=== PATIENT | male | born 1960 | race Caucasian/White ===

== ENCOUNTER → 2020-05-01 09:17 | Outpatient (CLI) | payer OTHER, SELFPAY ==
--- NOTE | ~2020-05-01 | MR_ITS ---
EXAMINATION: MR cervical spine wo con DATE: 05/01/2020 09:56 INDICATION: Cervical disc disorder with radiculopathy. TECHNIQUE: Magnetic resonance imaging (MRI) of the cervical spine was performed without intravenous c ontrast. Sequences included sagittal T2-weighted FSE, sagittal T2-weighted FS FSE, sagittal T1-weight ed FSE, axial MERGE and axial T2-weighted FSE. COMPARISON: 06/07/2015 FINDINGS: Mild levocurvature at the cervicothoracic junction. Sagittal alignment is normal. Cervical vertebral body heights are normal. Chronic T1 hyperintense hemangiomas at C6 and C7.. Mild disc height loss at C4-C5 and moderate disc height loss with fibrovascular degenerative endplate changes at C6-C7. Marro w signal is otherwise normal. Cord signal intensity is normal. Cervical soft tissues are unremarkable . The following disc levels are specifically discussed: C2-C3: The disc does not extend beyond the endplate margin. There is no uncovertebral joint osteoarth ritis. There is mild right and moderate left facet joint osteoarthritis. There is mild left neural fo raminal stenosis. There is no central canal stenosis. C3-C4: Unchanged small central disc extrusion. There is mild right and moderate left uncovertebral ole int osteoarthritis. There is mild right and severe left facet joint osteoarthritis. There is mild rig ht and moderate left neural foraminal stenosis. There is minimal central canal stenosis. C4-C5: Small central disc extrusion. There is moderate right and severe left uncovertebral joint oste oarthritis. There is mild bilateral facet joint osteoarthritis. There is mild right and moderate left neural foraminal stenosis. There is mild central canal stenosis. C5-C6: Disc is mildly bulging. There is moderate bilateral uncovertebral joint osteoarthritis. There is mild right and mild to moderate left facet joint osteoarthritis. There is mild bilateral neural fo raminal stenosis. There is minimal central canal stenosis. C6-C7: Eccentric to the left posterior disc osteophyte complex. There is mild right and severe left u ncovertebral joint osteoarthritis. There is mild right and moderate left facet joint osteoarthritis. There is mild right and moderate left neural foraminal stenosis. There is mild central canal stenosis with mild indentation of the left ventral surface of the cord. C7-T1: Small central disc extrusion. There is mild left and moderate right uncovertebral joint osteoa rthritis. There is mild bilateral facet joint osteoarthritis. There is no neural foraminal stenosis. There is no central canal stenosis. IMPRESSION: 1. Slight progression in moderate cervical spondylosis. Reviewed, dictated and finalized at location A.
== END ==
PROVIDERS: PCP Physician Assistant; Visit Provider Nurse Practitioner Adult Health
DX: M47.22 Other spondylosis with radiculopathy, cervical region (principal)
CPT/HCPCS: 72141

== ENCOUNTER → 2020-08-09 08:40 | Outpatient (CLI) | payer OTHER, SELFPAY ==
--- NOTE | ~2020-08-09 | XR_ITS ---
EXAMINATION: XR shoulder RT min 2V DATE: 08/09/2020 09:33 INDICATION: Right shoulder pain. TECHNIQUE: 4 views of right shoulder were obtained. COMPARISON: None. FINDINGS: Bone alignment is normal. No fracture. There is mild osteoarthritis of glenohumeral joint. The acromioclavicular joint is normal. IMPRESSION: 1. Mild glenohumeral joint osteoarthritis. Reviewed, dictated and finalized at location A.
== END ==
PROVIDERS: PCP Physician Assistant; Visit Provider Nurse Practitioner Adult Health
DX: M25.511 Pain in right shoulder (principal); M19.011 Primary osteoarthritis, right shoulder
CPT/HCPCS: 73030

== ENCOUNTER → 2020-09-07 08:50 | Outpatient (CLI) | payer OTHER, SELFPAY ==
--- NOTE | ~2020-09-07 | XR_ITS ---
XR scapula RT DATE: 09/07/2020 09:17 INDICATION: Right shoulder pain TECHNIQUE: 2 views COMPARISON: None FINDINGS: No fracture or dislocation, periosteal reaction or bone destruction or abnormal soft tissue calcification is noted at the right shoulder. Right scapula appears intact. Normal alignment at the acromioclavicular and glenohumeral joints. IMPRESSION: Negative Reviewed, dictated and finalized at location A. IMPRESSION: Negative
--- NOTE | ~2020-09-07 | XR_ITS ---
XR thoracic spine 2V DATE: 09/07/2020 09:17 INDICATION: Thoracic spine pain TECHNIQUE: AP, lateral, swimmer COMPARISON: None FINDINGS: There is moderate anterior wedge compression fracture deformity of T3. There is mild to moderate anterior wedging and loss of height of T5. Diffuse osteopenia. No other fracture or dislocation is evident. The thoracic pedicles are intact. No paraspinal soft tis rakel thickening. Mild degenerative spurring of the thoracic spine. IMPRESSION: Diffuse osteopenia Compression fracture deformities of T3 and T5 Mild scoliosis and mild degenerative change Reviewed, dictated and finalized at location A.
== END ==
PROVIDERS: PCP Physician Assistant; Visit Provider Nurse Practitioner Adult Health
DX: M54.6 Pain in thoracic spine (principal); M25.511 Pain in right shoulder; M85.88 Other specified disorders of bone density and structure, other site; M41.9 Scoliosis, unspecified
CPT/HCPCS: 72070; 73010

== ENCOUNTER → 2020-09-16 11:15 | Outpatient (CLI) | payer OTHER, SELFPAY ==
--- NOTE | ~2020-09-16 | MR_ITS ---
EXAMINATION: MR thoracic spine wo con DATE: 09/16/2020 12:12 INDICATION: Thoracic spine pain. TECHNIQUE: Magnetic resonance imaging (MRI) of the thoracic spine was performed without intravenous c ontrast. Sagittal localizer T1-weighted FSE of the cervical spine was obtained. Thoracic spine sequen ivory included sagittal T2-weighted FSE, sagittal T1-weighted FSE, sagittal T2-weighted FS FSE, and axi al T2-weighted FSE. COMPARISON: Thoracic spine radiographs 09/07/2020 FINDINGS: There is 13 degrees dextroscoliosis of thoracic spine. There are chronic compression fractu res of T3 and T5 with 1/5 loss of height. There is mild chronic anterior wedging of T9-L1 vertebral b odies associated with Schmorl's nodes. There is a hemangioma in T6. There is moderately decreased dis c height at T3-T4, mildly decreased disc height from T4-T5 through T9-T10, and moderately decreased d isc height at T10-T11. There is multilevel facet joint osteoarthritis, severe on the right at T5-T6. On the right, there is mild neural foraminal stenosis at T4-T5 and T5-T6. On the left, there is mild neural foraminal stenosis at T10-T11. At T3-T4, there is a right central protrusion with mild central canal stenosis and ventral indentation of the spinal cord. At T8-T9, the disc is mildly bulging with mild central canal stenosis. At T9-T10 and T10-T11, the discs are mildly bulging with mild central c anal stenosis. The spinal cord signal intensity is normal. IMPRESSION: 1. Moderate thoracic spondylosis. 2. Thoracic dextroscoliosis. Reviewed, dictated and finalized at location A. RAL ENGINEERING TEACHER
== END ==
PROVIDERS: PCP Physician Assistant; Visit Provider Nurse Practitioner Adult Health
DX: M47.894 Other spondylosis, thoracic region (principal)
CPT/HCPCS: 72146

== ENCOUNTER 2020-10-13 08:40 | Outpatient (CLI) | payer OTHER, SELFPAY ==
--- NOTE | ~2020-10-13 | NM_ITS ---
EXAMINATION: NM bone scan whole body DATE: 10/13/2020 12:07 INDICATION: Back pain. Osteoporosis. TECHNIQUE: 25 mCi Tc-99m HDP was administered intravenously. Delayed whole-body scintigrams were obt ained. COMPARISON: Thoracic spine MRI 09/16/2020, lumbar spine MRI 06/27/2015 FINDINGS: There is increased activity at the first carpometacarpal joints, sternoclavicular joints, a nd sternoclavicular joints, likely osteoarthritis. There is increased activity in lower lumbar spine correlating with spondylosis by MRI. IMPRESSION: 1. Normal thoracic spine. Increased activity in lower lumbar spine correlating with spondylosis by MR I. Reviewed, dictated and finalized at location A. S PRODUCTION MACHINE OPERATOR IMPRESSION: 1. Normal thoracic spine. Increased activity in lower lumbar spine correlating with spondylosis by MRI.
== END 2020-10-13 08:41 | disposition home or self-care (01) ==
LOC: ANHIMG 08:45
PROVIDERS: PCP Physician Assistant; Visit Provider Nurse Practitioner Adult Health
DX: M81.0 Age-related osteoporosis without current pathological fracture (principal)
CPT/HCPCS: 78306; A9561

== ENCOUNTER 2021-06-02 17:27 | Emergency (ER) | payer OTHER, SELFPAY ==
--- NOTE | ~2021-06-02 | CT_ITS ---
EXAMINATION: CT lumbar spine wo [facility] EXAM DATE: 06/02/2021 19:11 INDICATION: Fall, low back pain. Initial encounter. TECHNIQUE: Spiral CT lumbar spine was performed without contrast. Axial, coronal and sagittal images of the lumbar spine were reviewed. The dose-length product (DLP) for this examination was 322.59 mGy- cm. The exposure was tailored according to patient size (auto mA exposure control), and iterative re construction (ASIR) was used as additional dose reduction technique. Correlation is made to lumbar MR examination 06/27/2015. FINDINGS: There is no evidence of acute lumbar fracture. There is no disc space widening or traumatic vertebra l body subluxation suspected. Paraspinal soft tissue is unremarkable. Mild to moderate lumbar spond ylosis. Vertebral body heights are maintained. A detailed level by level evaluation of spondylosis ca n be added as addendum if requested. IMPRESSION: Mild to moderate lumbar spondylosis. No acute findings. Reviewed, dictated and finalized at location A.
--- NOTE | ~2021-06-02 | XR_ITS ---
EXAMINATION: XR hip LT 2V w AP pelvis EXAM DATE: 06/02/2021 19:36 INDICATION: Fall, left hip and low back pain. Initial encounter. TECHNIQUE: Left hip frontal, crosstable lateral projections for interpretation. Frontal projection pe lvis. There is no prior study for comparison. FINDINGS: Smooth left hip femoral head contour, no radiographic evidence of avascular necrosis. Ther e are no acute fractures or dislocations identified. There is no subcutaneous gas. The soft tissue is unremarkable. There are no radiopaque foreign bodies. There is mild symmetric bilateral hip allison apolinar osteoarthritis. IMPRESSION: No acute osseous findings. Reviewed, dictated and finalized at location A. IMPRESSION: No acute osseous findings.
--- NOTE | ~2021-06-02 | XR_ITS ---
EXAMINATION: XR thoracic spine 3V EXAM DATE: 06/02/2021 19:36 INDICATION: FALL lower back pain into left leg . TECHNIQUE: Frontal and lateral projections of the thoracic spine as well as lateral swimmers projecti on of the upper thoracic spine for interpretation. Comparison is made to prior examination from 09/07 FINDINGS: There is mild compression fracture of 2 mid thoracic vertebral body levels, probably T3 and T5, both appear unchanged compared to prior examination. The vertebral body and disc heights are oth erwise well maintained. There are no acute fractures identified. The vertebral bodies are aligned i n the AP dimension. Paraspinal soft tissue is unremarkable. Mild thoracic spondylosis and dextroscoli osis. There is aortic arteriosclerosis. IMPRESSION: 1. Mild chronic compression fractures T3 and T5. 2. No acute findings. Reviewed, dictated and finalized at location A.
[2021-06-02 17:44] VITALS: BP 176/67; PULSE 70; RESP 16; TEMP 36.6; O2SAT 100
[2021-06-02 19:11] LABS: Add Urine Microscopic? NO; Appearance Urine Clear (Clear); Bilirubin Urine Negative (Negative); Blood Urine Negative (Negative); Color Urine Colorless (Yellow); Glucose Urine UA Negative (Negative); Ketones Urine Negative (Negative); Leukocyte Esterase Ur Negative LEU/UL (Negative); Nitrate Urine Negative (Negative); Protein Urine Negative (Negative); Urobilinogen Urine Negative mg/dL (<2.0)
[2021-06-02 19:12] LABS: Specific Grav Ur 1.003 (1.001-1.035)
[2021-06-02 19:34] LABS: Amphetamine Screen Urine Negative (Negative); Barbiturate Screen Urine Negative (Negative); Benzodiazepines Screen Urine Positive (Negative); Cannabinoid Screen Urine Positive (Negative); Cocaine Screen Urine Negative (Negative); Methadone Screen Urine Negative (Negative); Opiate Screen Urine Negative (Negative); Phencyclidine Screen Urine Negative (Negative)
[2021-06-02 20:01] VITALS: PULSE 78; RESP 19; O2SAT 98
[2021-06-02 20:02] VITALS: BP 147/86; PULSE 81; RESP 19; O2SAT 98
[2021-06-02 20:13] LABS: Basophils Absolute Auto 0.1 K/mm3 (0.0-0.1); Basophils Percent Auto 0.5 % (0.2-1.2); Eosinophils Absolute Auto 0.1 K/mm3 (0-0.3); Eosinophils Percent Auto 0.6 % (0-4.4); Hematocrit 41.7 % (42.0-52.0); Hemoglobin 14.5 g/dL (14.0-18.0); Immature Granulocyte Absolute 0.05 K/mm3 (0.00-0.031); Immature Granulocyte Percent A 0.5 % (0-0.5); Lymphocytes Absolute Auto 1.42 K/mm3 (0.9-3.2); Mean Corpuscular HGB Conc 34.8 g/dl (32-36); Mean Corpuscular Hemoglobin 32.8 pg (26-34); Mean Corpuscular Volume 94.3 fl (80-100); Mean Platelet Volume 8.4 fl (7.4-10.4); Monocytes Absolute Auto 1.1 K/mm3 (0.1-0.6); Monocytes Percent Auto 11.2 % (2.6-8.5); Neutrophils Absolute Auto 6.8 K/mm3 (1.3-6.7); Neutrophils Percent Auto 72.2 % (45.5-73.1); Platelet Count Result 322 k/mm3 (150-375); Red Blood Count 4.42 M/mm3 (4.6-6.20); White Blood Count 9.5 K/mm3 (4.5-10.0)
--- NOTE | 2021-06-02 20:13 | ED.BACK ---
HPI - Back Pain/Injury General Chief Complaint: Back Pain/Injury Stated Complaint: low back pain chronic Time Seen by Provider: 06/02/21 17:45 Source: patient, EMS and RN notes reviewed Mode of arrival: EMS Limitations: no limitations History of Present Illness HPI Narrative: Patient is 60 years old white male presented to the ED by ambulance from home complaining of lower back pain and multiple falls. Patient is telling me the pain started immediately after trying to pickle pumper an ice cube of the floor. Patient denies bowel dysfunction, bladder dysfunction, altered sensation, focal weakness, or saddle numbness,. Patient also denies any fever, chills, nausea, vomiting, abdominal pain, chest pain, shortness of breath, headache. Patient lives alone, drinks alcohol daily, uses a cane at home, patient fell twice over the last 2 days, denying any specific injury. History of chronic pain in the neck, mid back and lower back. Patient had numerous cortisone injection in the neck and mid back. Last 1 was April 24, 2021. Patient also been managed by pain management physician and back ,. Patient is telling me that he been urinating in a bucket over the last 4 days because inability to get up. Patient does not take any pain medicine at this time. Patient requesting a pain shot and muscle relaxant so he can manage to take care of himself. Related Data Home Medications Medication Instructions Recorded Confirmed ketotifen fumarate 0.025 % (0.035 1 drop EACH EYE BID 10/13/19 05/26/21 %) eye drops mecobalamin (vitamin B12) 1,000 1,000 mcg SUBLINGUAL DAILY 10/13/19 05/26/21 mcg disintegrating tablet,sublingual magnesium oxide 400 mg (241.3 mg 800 mg PO .in pm tablet 10/14/19 05/26/21 magnesium) tablet Allergies Allergy/AdvReac Type Severity Reaction Status Date / Time amoxicillin Allergy Mild Hives Verified 05/25/21 08:38 Review of Systems Review of Systems: Narrative: CONSTITUTIONAL: Denies fever, chills, or sweats. EYES: Denies visual changes, redness, or discharge. ENT: Denies rhinorrhea, congestion, sore throat, or otalgia. CARDIOVASCULAR: Denies chest pain, palpitations, or edema. RESPIRATORY: Denies cough or dyspnea. GASTROINTESTINAL: Denies abdominal pain, nausea, vomiting, or diarrhea. GENITOURINARY: Denies dysuria or hematuria. SKIN: Denies rash or itching. MUSCULOSKELETAL: Denies back pain, joint pain, or myalgia. NEUROLOGIC: Denies headache, numbness, or weakness. PSYCHIATRIC: Denies anxiety or depression. [facility] Past Medical History Medical History (Updated 06/02/21 @ 21:21 by Calista Robles MD) B12 deficiency Surgical History Surgical History No significant past surgical history Family History Family History Mother Family history of rheumatoid arthritis Father Patient's father is Acute myocardial infarction Social History Social History Smoking status: Current every day smoker (vaping) Tobacco type: e-cigarettes/vaping Second hand tobacco smoke exposure: No Alcohol intake: current Substance use: never Gender identity (if verbalized by the patient): Male Exam Narrative: Exam Narrative: General appearance: Well-developed, well-nourished, does not look in pain Skin: Normal color Head: Normocephalic, nontraumatic Eyes: Clear conjunctiva ENT: Oropharynx normal, ears normal, nose normal Neck: Supple, nontender Chest and respiratory: Airway patent, no respiratory distress, no accessory muscle use Heart: Regular rate/rhythm Abdomen: Soft, nontender, no organomegaly, quiet bowel sounds Vascular: Normal peripheral pulses, normal capillary refill. Musculoskeletal: Slight limited range of motion on the left hip because of pain. No localized tenderness on back exam, patient was screaming from pain when he tried
[2021-06-02 20:23] LABS: Ethanol < 10 mg/dL (<10)
[2021-06-02 20:38] LABS: Alanine Aminotransferase 34 U/L (4-50); Albumin Level 4.6 g/dL (3.5-5.1); Alkaline Phosphatase 60 U/L (38-126); Anion Gap 12 mmol/L (8-16); Aspartate Amino Transferase 48 U/L (17-59); Bilirubin,Total 0.8 mg/dL (0.2-1.3); Blood Urea Nitrogen 10 mg/dL (9-20); Calcium 9.6 mg/dL (8.4-10.2); Carbon Dioxide 22 mmol/L (22-30); Chloride 94 mmol/L (98-107); Estimated CRCL calculation 94 ml/min; Estimated Glomerular Filt Rate > 60; Glucose 75 mg/dL (65-110); Potassium 4.3 mmol/L (3.4-5.0); Sodium 128 mmol/L (137-145)
[2021-06-02] MEDS: ONDANSETRON INJ 4 MG/2 ML VIAL IV PUSH (20:47)
[2021-06-02] MEDS: HYDROmorphone HCL INJ (*CRX) 1 MG/ML SYR 0.5 MG IV PUSH (20:47)
--- NOTE | 2021-06-02 21:10 | PC.NURSE ---
Patient ambulated in room with his cane with a steady gait and stated he feels comfortable going home. ERP notified.
[2021-06-02 21:36] VITALS: BP 115/48; PULSE 75; RESP 17; O2SAT 97
== END 2021-06-02 21:36 | disposition home or self-care (01) ==
PROVIDERS: Emergency Provider Emergency Medicine; PCP Physician Assistant
DX: M54.5 Low back pain (principal); M54.6 Pain in thoracic spine; R29.6 Repeated falls; G89.29 Other chronic pain; E53.8 Deficiency of other specified B group vitamins; F17.290 Nicotine dependence, other tobacco product, uncomplicated; M47.816 Spondylosis without myelopathy or radiculopathy, lumbar region; M48.54XA Collapsed vertebra, not elsewhere classified, thoracic region, initial encounter for fracture
CPT/HCPCS: 36415; 72072; 72131; 73502; 80053; 80307; 81003; 85025; 96374; 96375; 99284; J1170; J2405

== ENCOUNTER 2021-07-06 07:46 | Outpatient (CLI) | payer OTHER, SELFPAY ==
--- NOTE | ~2021-07-06 | MR_ITS ---
EXAMINATION: MR lumbar spine wo con DATE: 07/06/2021 08:36 INDICATION: Low back pain. TECHNIQUE: Magnetic resonance imaging (MRI) of the lumbar spine was performed without intravenous con trast. Sequences included sagittal T2-weighted FSE, sagittal T2-weighted FS FSE, sagittal T1-weighted FSE, and axial T2-weighted FSE. COMPARISON: Lumbar spine MRI 06/27/2015 FINDINGS: There is 3 degrees levocurvature of lumbar spine. Vertebral body heights are normal. There is mildly decreased disc height at L3-L4 and moderately decreased disc height at L5-S1. The distal sp inal cord signal intensity is normal. The conus medullaris is at L1. The following disc levels are sp ecifically discussed: L1-L2: The disc does not extend beyond the endplate margin. There is mild bilateral facet joint osteo arthritis. There is no neural foraminal stenosis. There is no central canal stenosis. L2-L3: The disc is bulging. There is moderate right and mild left facet joint osteoarthritis. There i s mild bilateral neural foraminal stenosis. There is mild central canal stenosis. L3-L4: The disc is bulging with superimposed right central extrusion. There is severe right and mild left facet joint osteoarthritis. There is mild bilateral neural foraminal stenosis. There is mild halima tral canal stenosis. L4-L5: The disc is bulging and has an annular fissure. There is severe right and mild left facet join t osteoarthritis. There is moderate right and mild left neural foraminal stenosis. There is mild cent ral canal stenosis. L5-S1: The disc is bulging with superimposed left subarticular zone extrusion with mass effect on lef t S1 nerve root in left lateral recess. There is severe bilateral facet joint osteoarthritis. There i s mild right and moderate left neural foraminal stenosis. There is mild central canal stenosis. IMPRESSION: 1. Moderate lumbar spondylosis with mild worsening from 06/27/2015. Reviewed, dictated and finalized at location A.
== END 2021-07-06 07:47 | disposition home or self-care (01) ==
PROVIDERS: PCP Physician Assistant; Visit Provider Physician Assistant
DX: M47.896 Other spondylosis, lumbar region (principal)
CPT/HCPCS: 72148

== ENCOUNTER 2022-06-07 09:09 | Outpatient (CLI) | payer OTHER, SELFPAY ==
--- NOTE | ~2022-06-07 | US_ITS ---
US art doppler w press LE BI INDICATION: Referral vascular disease. TECHNIQUE: Segmental pressures and plethysmographic and Doppler waveforms of the brachial and lower e xtremity arteries were obtained. COMPARISON: 11/05/2019. FINDINGS: Right and left brachial artery pressures of 140 mm Hg and 136 mm Hg, respectively, are concordant (no rmal difference <= 30 mmHg). There are biphasic waves. The right ankle-brachial index (SIRIA) is 1.14 (normal >= 0.9-1.0). The right great toe-brachial index (TBI) is 0.49 (normal >= 0.60). There are biphasic waves. The left SIRIA is 0.96. The left TBI is 0.79. IMPRESSION: 1. Normal bilateral ankle-brachial indices. 2: Mildly decreased right toe brachial index, consistent with peripheral arterial disease. Reviewed, dictated and finalized at location A. IMPRESSION: 1. Normal bilateral ankle-brachial indices. 2: Mildly decreased right toe brachial index, consistent with peripheral arteri al disease.
== END 2022-06-07 09:10 | disposition home or self-care (01) ==
PROVIDERS: PCP Physician Assistant; Visit Provider Physician Assistant
DX: I73.9 Peripheral vascular disease, unspecified (principal)
CPT/HCPCS: 93923

== ENCOUNTER 2024-09-01 14:46 | Outpatient (CLI) | payer OTHER, SELFPAY ==
--- NOTE | ~2024-09-01 | XR_ITS ---
EXAMINATION: XR hand RT min 3V DATE: 09/01/2024 15:05 INDICATION: Pain in right fingers and base of thumb. TECHNIQUE: 3 views of right hand were obtained. COMPARISON: None. FINDINGS: Alignment is normal. No fracture. There is severe osteoarthritis of first carpometacarpal j oint and mild osteoarthritis of second, third, and fifth distal interphalangeal joints. IMPRESSION: 1. Polyarticular osteoarthritis. Reviewed, dictated and finalized at location A.
== END 2024-09-01 14:47 | disposition home or self-care (01) ==
PROVIDERS: PCP Internal Medicine; Visit Provider Internal Medicine
DX: M19.041 Primary osteoarthritis, right hand (principal)
CPT/HCPCS: 73130

== ENCOUNTER 2025-04-13 15:09 | Outpatient (CLI) | payer OTHER, SELFPAY ==
--- NOTE | ~2025-04-13 | CT_ITS ---
CT Scan of the Chest without Contrast: Clinical Indication: Lung cancer screening, nicotine dependence Technique: Contiguous sections were acquired throughout the chest without intravenous contrast. Dose reduction technique was used on this scan by utilizing automated exposure control and iterative recon struction technique. The dose-length product (DLP) was 82.47 mGy-cm. Findings: There is no evidence of any significant mediastinal, hilar or axillary lymphadenopathy. There are ath erosclerotic calcifications of the aorta and coronary arteries. There is no evidence of pleural or pericardial effusion. The lungs are clear. No pulmonary nodules or infiltrates are noted. Mild emphysema. Images through the upper abdomen reveal no abnormalities. Impression: Lung RADS 1: Negative. 12 month follow-up screening CT advised. Reviewed, dictated and finalized at location . Impression: Lung RADS 1: Negative. 12 month follow-up screening CT advised.
--- OUTSIDE RECORDS SUMMARY | 2025-04-13 15:15 | XMS_ITS | Clinical Summary ---
Author Organization [facility] [employer] Address [address] [place] [address] Care Team Providers Care Heading Matcher And Assembler Name Role Phone Mary Kenney MD Primary Care Provider [phone] Source Comments [facility] [employer],non-owned Affiliates and Associated Physician Practices is amultiple site organization consisting of ambulatory clinics and hospital sitesin [place], [place], [place] and [place]. This disclosure is being madepursuant to the Care Everywhere program and may not contain all information available regarding this patient. Last updated 18.[facility] [employer] Allergies Active Allergy Reactions Criticality Noted Date Comments Amoxicillin Rash Low 11/26/2013 Medications * Be aware that medications may not be up to date on this document. Alwaysverify current medications with the patient. ketotifen (ALAWAY) 0.025 % ophthalmic solution Instill 1 Drop into both eyes once daily. Active cyclobenzaprine (FLEXERIL) 10 MG tablet Take 1 Tab by mouth 3 times daily as needed for Muscle Spasms. 30 Tab 0 03/09/2015 Active naproxen (NAPROSYN) 500 MG tablet Take 1 Tab by mouth 2 times daily. 60 Tab 5 03/09/2015 Active valACYclovir (VALTREX) 500 MG tablet Take 1 Tab by mouth once daily. 30 Tab 5 03/09/2015 Active mometasone (NASONEX) 50 MCG/ACT nasal spray [place] 2 Sprays into each nostril once daily. 3 Inhaler 3 03/09/2015 Active fexofenadine-ps eudoephedrine ER 12hr (NAHOMY-D ALLERGY & CONGESTION) 60-120 MG tablet 1 Tab 2 times daily 60 Tab 1 04/25/2015 Active Active Problems Problem Noted Date Diagnosed Date Allergic rhinitis 11/29/2014 Prehypertension 11/29/2014 Recurrent HSV (herpes simplex virus) 11/26/2013 Overview (11/26/2013): Takes 500 mg daily as a suppression dose (please write for BID for ease) Hyperlipidemia 11/15/2013 Overview (11/15/2013): 10y ASCVD risk 4.8% 11/2013 no indication for statin Anxiety 08/04/2013 Erectile dysfunction 01/28/2013 Tobacco abuse 10/28/2012 Hearing loss, left 10/28/2012 Immunizations Immunization Administration Dates Next Due INFLUENZA VACCINE, TRIV. (AF LURIA, FLUZONE TRIVALENT; 6MO+) (IIV3) 08/04/2013,10/15/2012 PNEUMOCOCCAL PPSV23 10/28/2012 TETANUS 10/31/2005 Family History Medical History Relation Name Comments CAD (Coronary Artery Disease) Father Arthritis - Osteo Mother Arthritis - Rheumatoid Mother CAD (Coronary Artery Disease) Mother Diabetes Mother Relation Name Status Comments Father Mother Social History Tobacco Use Types Packs/Day Years Used Date Smoking Tobacco: Every Day Cigarettes 1.5 35 Tobacco Cessation:Ready to Q uit: Yes; Counseling Given: Yes Comments:ready to try Alcohol Use Standard Drinks/Week Comments Yes 0 (1 standard drink = 0.6 oz pure alcohol) every day, about 4-5 drinks a day. no hx of DTs. Sex and Gender Information Value Date Recorded Sex Assigned at Not on file Legal Sex Male 3:59 PM TELEMARKETING AGENT Gender Identity Not on file Sexual Orientation Not on file Last Filed Vital Signs Vital Sign Reading Time Taken Comments Blood Pressure 134/74 03/09/2015 3:08 PM CDT Pulse 78 03/09/2015 3:08 PM CDT Temperature 36.2 C (97.1 F) 08/04/2013 1:40 PM CDT Respiratory Rate - - Oxygen Saturation 100% 03/09/2015 3:08 PM CDT Inhaled Oxygen Concentration - - Weight 66.2 kg (146 lb) 03/09/2015 3:08 PM CDT Height 177.8 cm (5' 10) 03/09/2015 3:08 PM CDT Body Mass Index 20.95 03/09/2015 3:08 PM CDT Plan of Treatment Health Maintenance Due Date Last Done Comments COLOGUARD (AGES 45-75) - COL ON CA SCREENING 1961 COLONOSCOPY - COLON CA SCREENING 1961 CT COLONOGRAPHY - COLON CA SCREENING 1961 FLEX SIG - COLON CA SCREENING 1961 HIV SCREENING 1976 ZOSTER VACCINE (1 of 2) 2011 PNEUMOCOCCAL VACCINE 50+ (2 of 2 - PCV) 10/28/2013 10/28/2012 FIT - COLON CA SCREENING 05/26/2015 05/26/2014 DTAP/TDAP/TD VACCINES (2 - T d or Tdap) 10/31/2015 10/31/2005 COLON MONITORING 11/29/2015 11/29/2014 Colorectal Cancer Screening 11/29/2015 LIPID TESTING 11/12/2018 11/12/2013, 07/28/2012 (Previously completed) COVID-19 VACCINE ( - 2023-2 5 season) 2024 DEPRESSION SCREENING 11/10/2024 INFLUENZA VACCINE (Season Ended) 2025 08/04/2013, 10/15/2012 Respiratory Syncytial Virus (RSV) Vaccine Pt: or over 60 yrs (1 - 1-dose 75+ series) 2036 HEPATITIS C SCREENING Completed 11/12/2013 HEPATITIS B VACCINE Aged Out No longe r eligible based on patient's age to complete this topic HIB VACCINE Aged Out No longer eligi ble based on patient's age to complete this topic HPV VACCINE Aged Out No longer eligi ble based on patient's age to complete this topic MENINGOCOCCAL (Group B) VACCINE SHARED DECISION-MAKING Aged Out No longer eligible based on patient's age to complete this topic MENINGOCOCCAL GROUPS A/C/Y/W VACCINE Aged Out No longer eligible b ased on patient's age to complete this topic Goals Goal Patient Goal Type Associated Problems Recent Progress Patient-Stated? Author Quit smoking / using tobacco Lifestyle No Shannan Vernon MA Procedures Procedure Name Priority Date/Time Associated Diagnosis Comments OCCULT BLOOD FECES FIT IMMUNOASSAY Routine 05/26/2014 3:55 PM CDT Screening for colon cancer LIPID PROFILE 11/12/2013 8:02 AM TELEMARKETING AGENT HEPATITIS C ANTIBODY 11/12/2013 8:02 AM TELEMARKETING AGENT from Last 3 Months or Most Recently Relevant to Health Maintenance Results * OCCULT BLOOD FECES 1-3 IMMUNOASSAY (05/26/2014 3:55 PM CDT) Pathologist [facility] Occult Blood Immunoassay Negative Negative [facility] ACCOUNT BILL STOOL SPECIMEN / Unknown 05/26/2014 3:55 PM CDT 10/27/2014 8:05 PM TELEMARKETING AGENT Narrative Resulting Agency Comment [facility] [address] [facility] [id number] Mary Kenney MD LAB - BODY FLUID ORDERABLES Nubia l Result [facility] ACCOUNT BILL [address] [place] [address] * HEPATITIS C ANTIBODY (11/12/2013 8:02 AM TELEMARKETING AGENT) Pathologist [facility] Hepatitis C Antibody NON-REACTI VE NON-REACT [facility] Signal to Cut-Off 0.01 <1.00 [facility] Comment: Test Performed at: [address] [id number] BRITTANY LOPEZ DO,MPH 11/12/2013 8:02 AM TELEMARKETING AGENT 11/12/2013 8:02 AM TELEMARKETING AGENT Mary Kenney MD LAB - CHEMISTRY ORDERABLES Final Result Performing Organization Address City/[facility]/ZIP Co de Phone Number [facility] [address] [place] [address] * (ABNORMAL) LIPID PROFILE (11/12/2013 8:02 AM TELEMARKETING AGENT) Pathologist [facility] Cholesterol 204(H) 125 - 200 mg/dL [facility] Comment: Test Performed at: [employer] [id number] BRITTANY LOPEZ DO,MPH HDL Cholesterol 73 > OR = 40 mg/dL [facility] Triglycerides 122 <150 mg/dL [facility] LDL Calculated 107 <130 mg/dL (calc) [facility] Comment: Desirable range <100 mg/dL for patients with CHD or diabetes and <70 mg/dL for diabetic patients with known heart disease. CHOL/HDLC RATIO 2.8 < OR = 5.0 (calc) [facility] Non HDL Cholesterol 131 mg/dL (calc) [facility] Comment: Target for non-HDL cholesterol is 30 mg/dL higher than LDL cholesterol target. 11/12/2013 8:02 AM TELEMARKETING AGENT 11/12/2013 8:02 AM TELEMARKETING AGENT us Mary Kenney MD LAB - CHEMISTRY ORDERABLES Final Result [facility] [id number] [place] [address] from Last 3 Months or Most Recently Relevant to Health Maintenance Insurance [employer] Care Teams Heading Matcher And Assembler Relationship Specialty Start Date End Date Mary Kenney MD PCP - General Internal Medicine 10/15/12
== END 2025-04-13 15:10 | disposition home or self-care (01) ==
PROVIDERS: PCP Internal Medicine; Visit Provider Internal Medicine
DX: Z12.2 Encounter for screening for malignant neoplasm of respiratory organs (principal); F17.210 Nicotine dependence, cigarettes, uncomplicated
CPT/HCPCS: 71271